=== PATIENT | female | born 1965 | race African-American/Black ===

== ENCOUNTER 2019-10-16 10:17 | Inpatient (IN) | payer OTHER ==
[~2019-10-16] VITALS: Ht 170.2 cm; Wt 120.2 kg
[2019-10-16 10:20] VITALS: Ht 170.2 cm; Wt 120.2 kg
[2019-10-16 11:50] LABS: CALCIUM 9.2 mg/dL (8.5-10.1); CARBON DIOXIDE 27.2 mmol/L (21-32); CHLORIDE SERUM 103 mmol/L (98-107); GFR1 > 60 mL/min; GLUCOSE SERUM 116 mg/dL (74-106); POTASSIUM SERUM 3.4 mmol/L (3.5-5.1); SODIUM SERUM 140 mmol/L (136-145)
[2019-10-16 12:50] LABS: BASOPHIL % 0.8 % (0-2); PLATELET COUNT 229 x10^3mcL (130-400)
[2019-10-16] MEDS ORDERED: COR6 PO (15:33)
[2019-10-16] MEDS ORDERED: CATAPRES0.1 MG PO (15:34)
[2019-10-16] MEDS ORDERED: LASIX40 MG PO (15:35)
[2019-10-16] MEDS ORDERED: FUROSEMIDE20 MG PO (15:43)
[2019-10-16 16:24] LABS: CHOLESTEROL/HDL RATIO 4.2
[2019-10-16] MEDS ORDERED: TRUEPLUS LANCE1 EAC1 (16:44)
[2019-10-16 17:16] VITALS: BP 137/69
[2019-10-16 20:34] VITALS: BP 154/70
[2019-10-17 05:54] VITALS: BP 151/67
[2019-10-17 06:35] LABS: BASOPHIL % 0.2 % (0-2); PLATELET COUNT 220 x10^3mcL (130-400)
[2019-10-17 06:36] LABS: microscopic required? NO
[2019-10-17 06:49] LABS: RED CELL DISTRIBUTION WIDTH 17.7 % (11.5-14.5)
[2019-10-17 06:53] LABS: CALCIUM 8.9 mg/dL (8.5-10.1); CREATININE SERUM 1.3 mg/dL (0.6-1.0); MAGNESIUM 2.2 mg/dL (1.8-2.4); PHOSPHOROUS 4.5 mg/dL (2.5-4.9); POTASSIUM SERUM 3.5 mmol/L (3.5-5.1)
[2019-10-17 07:02] LABS: UA SPECIFIC GRAVITY <=1.005 (1.005-1.035); urine erythrocyte NEGATIVE (NEGATIVE)
[2019-10-17 08:11] LABS: AMPHETAMINE QUAL UR NONE DETECTED (See below)
[2019-10-17 08:17] VITALS: BP 153/75
[2019-10-17 15:31] VITALS: BP 157/79
[2019-10-17 18:25] VITALS: BP 175/87
[2019-10-17 22:07] VITALS: BP 182/83
[2019-10-17 23:14] VITALS: BP 182/83
[2019-10-18] VITALS (9 sets, daily range): BP systolic 155–212; BP diastolic 62–97
[2019-10-18 06:20] LABS: BASOPHIL % 0.4 % (0-2); PLATELET COUNT 196 x10^3mcL (130-400)
[2019-10-18 06:35] LABS: CALCIUM 8.4 mg/dL (8.5-10.1); CARBON DIOXIDE 30.1 mmol/L (21-32); CREATININE SERUM 1.1 mg/dL (0.6-1.0); MAGNESIUM 2.1 mg/dL (1.8-2.4); PHOSPHOROUS 4.2 mg/dL (2.5-4.9); POTASSIUM SERUM 3.5 mmol/L (3.5-5.1)
[2019-10-18 06:52] LABS: RED CELL DISTRIBUTION WIDTH 17.4 % (11.5-14.5)
[2019-10-19] VITALS (7 sets, daily range): BP systolic 128–195; BP diastolic 47–78
[2019-10-19 05:58] LABS: BASOPHIL % 0.1 % (0-2); PLATELET COUNT 225 x10^3mcL (130-400)
[2019-10-19 05:59] LABS: RED CELL DISTRIBUTION WIDTH 17.4 % (11.5-14.5)
[2019-10-19 06:31] LABS: CALCIUM 9.1 mg/dL (8.5-10.1); CREATININE SERUM 1.1 mg/dL (0.6-1.0); POTASSIUM SERUM 3.5 mmol/L (3.5-5.1)
[2019-10-20] VITALS (7 sets, daily range): BP systolic 141–184; BP diastolic 56–88
[2019-10-20 06:33] LABS: CALCIUM 8.6 mg/dL (8.5-10.1); CARBON DIOXIDE 32.1 mmol/L (21-32); CREATININE SERUM 1.1 mg/dL (0.6-1.0); POTASSIUM SERUM 3.7 mmol/L (3.5-5.1)
[2019-10-20 07:28] LABS: BASOPHIL % 0.5 % (0-2); PLATELET COUNT 223 x10^3mcL (130-400)
[2019-10-20 07:31] LABS: RED CELL DISTRIBUTION WIDTH 17.9 % (11.5-14.5)
[2019-10-21 04:32] VITALS: BP 170/71
[2019-10-21 04:50] VITALS: BP 151/68
[2019-10-21 06:57] LABS: PLATELET COUNT 215 x10^3mcL (130-400); RED CELL DISTRIBUTION WIDTH 17.5 % (11.5-14.5)
[2019-10-21 07:03] LABS: CALCIUM 8.9 mg/dL (8.5-10.1); CARBON DIOXIDE 29.8 mmol/L (21-32); CREATININE SERUM 1.1 mg/dL (0.6-1.0); POTASSIUM SERUM 3.8 mmol/L (3.5-5.1)
[2019-10-21 09:17] VITALS: BP 181/82
[2019-10-21 10:16] VITALS: BP 142/86
[2019-10-21] MEDS ORDERED: COR6 PO (10:33)
[2019-10-21] MEDS ORDERED: NOR5 PO (10:34)
[2019-10-21] MEDS ORDERED: ZES10 PO (10:34)
[2019-10-21] MEDS ORDERED: HYDROCHLOROTH12.5 M3 PO (10:35)
[2019-10-21] MEDS ORDERED: COLCHICINE0.6 M1 PO (11:39)
[2019-10-21 12:11] VITALS: BP 140/60
== END 2019-10-21 14:35 | disposition home health service (06) | DRG 199 ==
LOC: ED 10:17 → DU 15:39 → MU 10-20 09:58
PROVIDERS: Internal Medicine; Student in an Organized Health Care Education/Training Program; ADMIT Internal Medicine
DX: I16.0 Hypertensive urgency (principal); I50.33 Acute on chronic diastolic (congestive) heart failure; N17.9 Acute kidney failure, unspecified; Z68.41 Body mass index [BMI] 40.0-44.9, adult; E78.5 Hyperlipidemia, unspecified; E87.6 Hypokalemia; D50.9 Iron deficiency anemia, unspecified; I13.0 Hypertensive heart and chronic kidney disease with heart failure and stage 1 through stage 4 chronic kidney disease, or unspecified chronic kidney disease; N18.9 Chronic kidney disease, unspecified; J44.9 Chronic obstructive pulmonary disease, unspecified; M19.90 Unspecified osteoarthritis, unspecified site; Z86.711 Personal history of pulmonary embolism; Z79.01 Long term (current) use of anticoagulants; Z86.718 Personal history of other venous thrombosis and embolism; Z88.0 Allergy status to penicillin; Z88.8 Allergy status to other drugs, medicaments and biological substances; Z90.49 Acquired absence of other specified parts of digestive tract; Z90.710 Acquired absence of both cervix and uterus; Z79.899 Other long term (current) drug therapy
CPT/HCPCS: 83880; 85378; 97110-GP; 97116-GP; 97530-GP; G0378; J1885; J2405; J7620; Q0092; Q9967